=== PATIENT | female | born 1935 | race Caucasian/White ===

== ENCOUNTER 2018-12-24 10:55 | Emergency (ER) | payer OTHER ==
[~2018-12-24] VITALS: Ht 152.4 cm; Wt 52.2 kg
[2018-12-24] MEDS ORDERED: SYNTHROID50 MCG (11:00)
[2018-12-24] MEDS ORDERED: NORVASC5 MG (11:00)
[2018-12-24] MEDS ORDERED: ASPIR 8181 MG (11:01)
[2018-12-24] MEDS ORDERED: ZOCOR20 MG (11:01)
[2018-12-24] MEDS ORDERED: MAGNESIUM250 M1 (11:01)
== END 2018-12-24 12:13 | disposition home or self-care (01) ==
LOC: ER 10:55
DX: B34.9 Viral infection, unspecified (principal)

== ENCOUNTER 2020-01-02 09:39 | Emergency (ER) | payer OTHER ==
[~2020-01-02] VITALS: Ht 152.4 cm; Wt 49.9 kg
[~2020-01-02 09:39] MED LIST: ASPIR 8181 MG; MAGNESIUM250 M1; NORVASC5 MG; SYNTHROID50 MCG; ZOCOR20 MG
[2020-01-02] MEDS ORDERED: DUI500 PO (12:49)
[2020-01-02] MEDS ORDERED: PYRIDIUM100 M1 PO (12:49)
== END 2020-01-02 13:56 | disposition home or self-care (01) ==
LOC: ER 09:39
DX: N39.0 Urinary tract infection, site not specified (principal); R10.2 Pelvic and perineal pain